=== PATIENT | female | born 1965 | race Caucasian/White ===

== ENCOUNTER 2024-07-29 07:55 | Outpatient (REF) | payer BC, SELFPAY ==
[2024-08-04 10:35] LABS: HPV Genotype 16 Negative (Negative); HPV Genotype 18 Negative (Negative); HPV High Risk Negative (Negative)
== END 2024-07-29 07:56 | disposition home or self-care (01) ==
LOC: HO.LNP 07:55
PROVIDERS: Visit Provider Internal Medicine
DX: Z00.00 Encounter for general adult medical examination without abnormal findings (principal); E78.5 Hyperlipidemia, unspecified; I10 Essential (primary) hypertension; E11.9 Type 2 diabetes mellitus without complications; Z79.84 Long term (current) use of oral hypoglycemic drugs; Z79.899 Other long term (current) drug therapy; Z12.4 Encounter for screening for malignant neoplasm of cervix; Z11.51 Encounter for screening for human papillomavirus (HPV)
CPT/HCPCS: 87626; 88175; 96127

== ENCOUNTER 2024-07-29 07:55 | Outpatient (AMB) | payer BC, SELFPAY ==
--- OUTSIDE RECORDS SUMMARY | 2024-07-29 08:00 | XMS_ITS | Patient Health Record ---
Author Organization [facility] Address [address] [address] Care Team Providers Care Television Analyzer Name Role Phone LEW Gill Primary Care Provider Reason For Referral No Information Problems Problem Type SNOMED Code ICD Code Onset Dates Problem Status W/U Status Risk Notes Problem Abdominal pain (36064907) Abd/ingui nal/groin pain (789.09) Active confirmed [facility] [id number] - Plan Of Treatment No Information Insurance Providers Payer Name Payer Address Payer Phone Subscriber Number Group Number Insured Name Patient Relationship to Insured Coverage Start Date Coverage End Date [facility] [place] [address] [place] [address] [id number] MARIE TAYLOR
--- NOTE | 2024-07-29 08:02 | A.OFFPC_ITS ---
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 Allergies Penicillins Allergy (Verified 07/29/24 08:08) Unknown anethesia Allergy (Uncoded 07/29/24 08:08) BP dropped Medication List - Last Reconciled 07/29/24 by Elise Rivas MD aspirin 81 mg PO DAILY biotin 10 mg PO DAILY cholecalciferol (vitamin D3) 25 mcg PO DAILY evening primrose oil 500 mg PO DAILY lisinopril 5 mg PO DAILY [magnesium gummies gummies] metformin 500 mg PO DAILY metformin ER 500 mg PO DAILY naproxen sodium 220 mg PO Q12H PRN omega-3 fatty acids 1,000 mg PO DAILY rosuvastatin 20 mg PO DAILY Tobacco use date assessed: 07/29/24 Dental Screening Dental Screen Date: 07/29/24 Did you have a dental visit in the last 12 months?: Yes Did you have a dental problem in the last 6 months where you did not have access to dental care?: No Was dental information given to patient?: Patient has dentist HPI CURER FOAM RUBBER-PE HPI Details Pt presents for [employer]ER FO[employer] RU[employer]ER PE. PMH is DM 2, HTN, hypercholest, stable on meds. Patient moved from [place] year and half ago. Patient complains of unrestful sleep, getting worse over last few months. She has been under stress related to her mother who lives in [place]. PFSH Surgical History (Updated 07/29/24 @ 08:47 by Elise Rivas MD) S/P LEEP (loop electrosurgical excision procedure) Hx of section Family History (Updated 07/29/24 @ 09:06 by Elise Rivas MD) Father Heart problem Hypertension CAD (coronary artery disease), Onset Age: 57 Mother Pre-diabetes Maternal Aunt Diabetes Maternal Grandmother No problems noted. 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 1. Little interest or pleasure in doing things: not at all 2. Feeling down, depressed, or hopeless: not at all 3. Trouble falling or staying asleep, or sleeping too much: several days 4. Feeling tired or having little energy: not at all 5. Poor appetite or overeating: not at all 6. Feeling bad about yourself - or that you are a failure or have let yourself or your family down: not at all 7. Trouble concentrating on things, such as reading the newspaper or watching television: not at all 8. Moving or speaking so slowly that other people could have noticed. Or the opposite - being so fidgety or restless that you have been moving around a lot more than usual: not at all 9. Thoughts that you would be better off or of hurting yourself in some way: not at all Total score: 1 Depression Screening Interpretation: Negative Depression Screening Done: Yes 09965 - PHQ-9 Billing: Yes Source: Developed by Drs. Perez Killian, Emelia Martinez, Herrera Vasquez and colleagues, with an educational siomara from [employer]. Thrive Questionnaire Date Thrive assessed: 07/29/24 I am a: Patient What is your living situation today?: I have a steady place to live Within the past 12 months, did the food you bought not last and you didn't have the money to get more?: Never true Within the past 12 months, did you worry whether your food would run out before you got money to buy more?: Never true Do you have trouble paying for medicines?: No Do you have trouble getting transportation to medical appointments?: No Do you have trouble paying your heating and electricity bill?: No Do you have trouble taking care of your child, family member or friend?: No Do you have trouble with day-to-day activities such as bathing, preparing meals, shopping, managing finances, etc.?: No Are you currently unemployed and looking for a job?: No Are you interested in more education?: No Please select the resources that you would like help with: None Currently or been in a relationship where the following occur: I choose not to answer THRIVE Score: 0 AUDIT C Alcohol Use Questionnaire (AUDIT-C) 1. How often do you have a drink containing alcohol?: Monthly or less 2. How many drinks containing alcohol do you have on a typical day when you are drinking?: 1 or 2 3. How often do you have six or more drinks on one occasion?: Never Total Score: 1 VAUGHN-7 AMB Questionnaire VAUGHN-7 Date VAUGHN - 7 assessed: 07/29/24 Feeling nervous, anxious, or on edge: 0 = Not at all Not being able to stop or control worryin = Not at all Worrying too much about different things: 0 = Not at all Trouble relaxin = Not at all Being so restless that it is hard to sit still: 0 = Not at all Becoming easily annoyed or irritable: 0 = Not at all Feeling afraid as if something awful might happen: 0 = Not at all Total VAUGHN-7 score (0-4 normal; 5-9 mild; 10-14 moderate; 15-21 severe): 0 Source: Developed by Drs. Perez Killian, Emelia Martinez, Herrera Vasquez and colleagues, with an educational siomara from [employer]. VAUGHN-7 Assessment Billing VAUGHN-7 Assessment Tool: VAUGHN-7 Assessment 83929 Review of Systems Const All systems reviewed & are unremarkable except as noted in HPI and below Reports no additional complaints Eyes Reports no additional complaints ENT Reports no additional complaints Card Reports no additional complaints Resp Reports no additional complaints GI Reports no additional complaints Reports no additional complaints Musc Reports no additional complaints Skin/Breast Reports system reviewed and no additional complaints, except as documented Physical exam (Primary Care) Vital Signs: Last Vital Signs Temp 98.1 F 07/29/24 08:04 Pulse 82 07/29/24 08:04 Resp 18 07/29/24 08:04 BP 122/78 07/29/24 08:04 Pulse Ox 99 07/29/24 08:04 Oxygen Delivery Method Room Air 07/29/24 08:04 BMI result Body Mass Index 27.5 Tobacco/Smoking Status: Tobacco use Status Tobacco use date assessed 07/29/24 07/29/24 08:13 Patient Tobacco Use Status Never used Tobacco 07/29/24 08:54 e-Cigarette/Vaping Use Never Used 07/29/24 08:54 PHQ-9: PHQ-9 Score PHQ-9: Total score 1 07/29/24 08:39 Depression Screening Interpretation: Negative Thrive Assessment: Date of Thrive Assessment Date Thrive assessed 07/29/24 07/29/24 08:19 Currently or been in a relationship where the following occur: I choose not to answer Const General: no acute distress HENMT Head: Yes normal to inspection Ears: hearing grossly normal bilaterally Face and sinus: Yes normal facial exam Mouth: Normal oral and palatal mucosa present Eyes General: appearance normal, both eyes and all related structures Neck Neck: Yes no lymphadenopathy and Yes supple Resp Effort & Inspection: normal respiratory effort Auscultation: clear to auscultation bilaterally Cardio Rhythm: regular rhythm Heart sounds: S1 normal heart sound present and S2 normal heart sound present GI Inspection: Yes normal to inspection Palpation (GI): Soft to palpation Percussion: Yes normal to percussion Auscultation: normal bowel sounds Speculum Exam - Vagina: normal appearance of the vagina Speculum Exam - Cervix: normal appearance of the cervix Bimanual exam- vagina & uterus: normal bimanual exam Extrem Other: Diabetic foot exam skin is intact monofilament and vibration sensation intact bilaterally General: Yes no clubbing, cyanosis or edema Coding Level of Care Code Est Pt Prev Care 40-64y(00323) Diagnoses Hyperlipidemia E78.5 HTN (hypertension) I10 DM2 (diabetes mellitus, type 2) E11.9 Colon cancer screening Z12.11 Annual physical exam Z00.00 Additional Codes VAUGHN-7 Assessment Billing - VAUGHN-7 Assessment Tool: VAUGHN-7 Assessment 88153 ([id number]) PHQ-9 - 24561 - PHQ-9 Billing: Yes ([id number]) Assessment & Plan Assessment & Plan (1) Hyperlipidemia: Code(s): E78.5 - Hyperlipidemia, unspecified Category: Medical Plan: Continue statin, return for fasting blood work including lipid profile (2) HTN (hypertension): Code(s): I10 - Essential (primary) hypertension Category: Medical Plan: Continue lisinopril (3) DM2 (diabetes mellitus, type 2): Code(s): E11.9 - Type 2 diabetes mellitus without complications Category: Medical Plan: Continue metformin ADA diet increase physical activity weight loss discussed with the patient (4) Colon cancer screening: Comment: Sonja cooper 02/2024 Code(s): Z12.11 - Encounter for screening for malignant neoplasm of colon Category: Medical Plan: Patient declined colonoscopy (5) Annual physical exam: Code(s): Z00.00 - Encounter for general adult medical examination without abnormal findings Category: Medical Plan: Well-balanced diet regular physical activity discussed with the patient mammogram will be scheduled Pap smear was done today, patient will return in 3 months Orders: Orders Complete Blood Count Auto Diff Today E11.9 - Type 2 diabetes mellitus without complications, E78.5 - Hyperlipidemia, unspecified, I10 - Essential (primary) hypertension Hemoglobin A1c Today E11.9 - Type 2 diabetes mellitus without complications, E78.5 - Hyperlipidemia, unspecified, I10 - Essential (primary) hypertension Vitamin D 25-OH Total Today E11.9 - Type 2 diabetes mellitus without complications, E78.5 - Hyperlipidemia, unspecified, I10 - Essential (primary) hypertension Pap Smear Today Z00.00 - Encounter for general adult medical examination without abnormal findings MM screening mammo BI Today Z12.31 - Encounter for screening mammogram for malignant neoplasm of breast Comprehensive [place]. Panel Fast Today E11.9 - Type 2 diabetes mellitus without complications, E78.5 - Hyperlipidemia, unspecified, I10 - Essential (primary) hypertension Lipid Panel Today E11.9 - Type 2 diabetes mellitus without complications, E78.5 - Hyperlipidemia, unspecified, I10 - Essential (primary) hypertension Microalbumin, Random (w Creat) Today E11.9 - Type 2 diabetes mellitus without complications, E78.5 - Hyperlipidemia, unspecified, I10 - Essential (primary) hypertension Hemoglobin A1c 3 Months E11.9 - Type 2 diabetes mellitus without complications, I10 - Essential (primary) hypertension Comprehensive [place]. Panel Fast 3 Months E11.9 - Type 2 diabetes mellitus without complications, I10 - Essential (primary) hypertension Medications: New lisinopril 5 mg PO DAILY 90 tabs 3RF metformin ER 500 mg PO DAILY 90 tabs 3RF rosuvastatin 20 mg PO DAILY 90 tabs 3RF
[2024-07-29 08:04] VITALS: BP 122/78; PULSE 82; RESP 18; TEMP 36.7; O2SAT 99; BMI 27.5
== END 2024-07-29 09:43 | disposition home or self-care (01) ==
LOC: HO.HMCC 07:56
PROVIDERS: PCP Internal Medicine; Visit Provider Internal Medicine
DX: E78.5 Hyperlipidemia, unspecified (principal); I10 Essential (primary) hypertension; E11.9 Type 2 diabetes mellitus without complications; Z12.11 Encounter for screening for malignant neoplasm of colon; Z00.00 Encounter for general adult medical examination without abnormal findings

== ENCOUNTER 2024-08-02 08:56 | Outpatient (REF) | payer BC, SELFPAY ==
--- OUTSIDE RECORDS SUMMARY | 2024-08-02 09:46 | XMS_ITS | Patient Health Record ---
Author Organization [facility] Address [address] [address] Care Team Providers Care Numerical Control Operator Name Role Phone LEW Gill Primary Care Provider Reason For Referral No Information Problems Problem Type SNOMED Code ICD Code Onset Dates Problem Status W/U Status Risk Notes Problem Abdominal pain (81547884) Abd/ingui nal/groin pain (789.09) Active confirmed [facility] [id number] - Plan Of Treatment No Information Insurance Providers Payer Name Payer Address Payer Phone Subscriber Number Group Number Insured Name Patient Relationship to Insured Coverage Start Date Coverage End Date [facility] [place] [address] [place] [address] [phone] [id number] MARIE TAYLOR
[2024-08-02 10:01] LABS: MANUAL DIFF FLAG NO
[2024-08-02 10:13] LABS: Basophils Percent Auto 0.6 % (0-2); Eosinophils Absolute Auto 0.1 X10*3/uL (0.0-0.4); Eosinophils Percent Auto 1.5 % (0-4); Hematocrit 29.5 % (37.0-47.0); Hemoglobin 8.3 g/dl (12.0-16.0); Imm Gran Abs Auto 0.01 X10*3/uL (0.00-0.03); Imm Gran Pct Auto 0.2 % (0.0-0.4); Lymphocytes Absolute Auto 1.5 X10*3/uL (1.2-4.9); Lymphocytes Percent Auto 28.5 % (20-40); Mean Corpuscular HGB Conc 28.1 g/dl (31.0-35.0); Mean Corpuscular Hemoglobin 17.1 pg (27.0-33.0); Monocytes Absolute Auto 0.5 X10*3/uL (0.1-1.2); Monocytes Percent Auto 9.8 % (2-11); Neutrophils Absolute Auto 3.1 x10*3/uL (2.0-8.3); Neutrophils Percent Auto 59.4 % (45-73); Platelet Count 265 X10*3/uL (160-400); Red Blood Count 4.84 X10*6/uL (4.20-5.50); Red Cell Distribution Width 21.6 % (11.0-16.0); White Blood Count 5.2 X10*3/uL (4.8-10.8)
[2024-08-02 10:52] LABS: Estimated Average Glucose 117 mg/dL; Hemoglobin A1C 87.3767 umol/L; Hemoglobin A1c % 5.7 % (<6.0); Total Hemoglobin (HGBA1C) 2231.8466 umol/L
[2024-08-02 11:06] LABS: Alanine Aminotransferase 19 U/L (0-31); Albumin Level 4.4 g/dL (3.5-5.0); Alkaline Phosphatase 65 U/L (39-117); Anion Gap 9 (12-20); Aspartate Amino Transferase 33 U/L (5-31); Bilirubin Total 0.5 mg/dL (0.0-1.0); Blood Urea Nitrogen 15 mg/dL (9-16); Calcium 9.6 mg/dL (8.4-10.2); Carbon Dioxide 24 mmol/L (22-29); Chloride 109 mmol/L (96-108); Cholesterol 161 mg/dL (<200); Estimated Glomerular Filt Rate > 60; Glucose Fasting 89 mg/dL (60-99); HDL Cholesterol 52 mg/dL (>40); LDL Cholesterol Calculated 89 mg/dL (<100); Potassium 4.4 mmol/L (3.3-5.1); Sodium 138 mmol/L (135-145); Total Protein 7.5 g/dL (6.5-8.0); Triglycerides 101 mg/dL (<150)
[2024-08-02 11:08] LABS: Vitamin D 25-OH Total 69.7 ng/mL (>30)
[2024-08-02 11:20] LABS: Creatinine Urine 20.21 mg/dL; Microalbumin Urine < 5.0 mg/L
== END 2024-08-02 08:57 | disposition home or self-care (01) ==
LOC: HO.HMGCLDS 08:56
PROVIDERS: PCP Internal Medicine; Visit Provider Internal Medicine
DX: E78.5 Hyperlipidemia, unspecified (principal); I10 Essential (primary) hypertension; E11.9 Type 2 diabetes mellitus without complications
CPT/HCPCS: 36415; 80053; 80061; 82043; 82306; 82570; 83036; 85025

== ENCOUNTER 2024-10-11 08:45 | Outpatient (REF) | payer BC, SELFPAY ==
--- OUTSIDE RECORDS SUMMARY | 2024-10-11 09:09 | XMS_ITS | Patient Health Record ---
Author Organization [facility] Address [address] [address] Care Team Providers Care Embedded Software Programmer Name Role Phone LEW Gill Primary Care Provider [phone] Reason For Referral No Information Problems Problem Type SNOMED Code ICD Code Onset Dates Problem Status W/U Status Risk Notes Problem Abd/inguin al/groin pain (789.09) Active confirmed [facility] [id number] - Plan Of Treatment No Information Insurance Providers Payer Name Payer Address Payer Phone Subscriber Number Group Number Insured Name Patient Relationship to Insured Coverage Start Date Coverage End Date [facility] [place] [address] [place] [address] [id number] MARIE TAYLOR
== END 2024-10-11 08:46 | disposition home or self-care (01) ==
LOC: HO.MAMMO 08:45
PROVIDERS: PCP Internal Medicine; Visit Provider Internal Medicine
DX: Z12.31 Encounter for screening mammogram for malignant neoplasm of breast (principal)
CPT/HCPCS: 77063; 77067

== ENCOUNTER → 2024-10-11 08:45 | Outpatient (BNV) | payer BC, SELFPAY | PROVIDERS: PCP Internal Medicine; Visit Provider Internal Medicine | DX: Z12.31 Encounter for screening mammogram for malignant neoplasm of breast (principal) | CPT/HCPCS: 77063; 77067 ==

== ENCOUNTER 2024-11-08 09:19 | Outpatient (REF) | payer BC, SELFPAY ==
[2024-11-08 14:12] LABS: Hemoglobin A1C 120.2069 umol/L; Total Hemoglobin (HGBA1C) 3461.4008 umol/L
[2024-11-08 14:24] LABS: Alanine Aminotransferase 34 U/L (0-31); Albumin Level 4.7 g/dL (3.5-5.0); Alkaline Phosphatase 57 U/L (39-117); Anion Gap 10 (12-20); Aspartate Amino Transferase 51 U/L (5-31); Blood Urea Nitrogen 19 mg/dL (9-16); Calcium 10.0 mg/dL (8.4-10.2); Carbon Dioxide 26 mmol/L (22-29); Chloride 108 mmol/L (96-108); Estimated Glomerular Filt Rate > 60; Iron 44 mcg/dL (30-160); Percent Iron Saturation 11 % (15-50); Potassium 4.2 mmol/L (3.3-5.1); Sodium 140 mmol/L (135-145); Total Iron Binding Capacity 383 mcg/dL (228-428); Total Protein 7.8 g/dL (6.5-8.0); Unsaturated Iron Binding 339 ug/dL
[2024-11-08 14:56] LABS: Folate 13.2 ng/mL (> or = 4.0); Vitamin B12 552 pg/mL (200-900)
== END 2024-11-08 09:20 | disposition home or self-care (01) ==
LOC: HO.HMGCLDS 09:19
PROVIDERS: PCP Internal Medicine; Visit Provider Internal Medicine
DX: D23.5 Other benign neoplasm of skin of trunk (principal); Z23 Encounter for immunization; I10 Essential (primary) hypertension; E78.5 Hyperlipidemia, unspecified; E11.9 Type 2 diabetes mellitus without complications; I65.23 Occlusion and stenosis of bilateral carotid arteries; D64.9 Anemia, unspecified; Z79.899 Other long term (current) drug therapy; Z00.00 Encounter for general adult medical examination without abnormal findings
CPT/HCPCS: 36415; 80053; 82607; 82746; 83036; 83540; 84443; 90471; 90677

== ENCOUNTER 2024-11-08 09:19 | Outpatient (AMB) | payer BC, SELFPAY ==
--- NOTE | 2024-11-08 09:30 | A.OFFPC_ITS ---
Vital Signs 11/08/24 09:31 Height 5 ft 2.5 in Weight 151 lb BMI 27.2 BP 106/70 Blood Pressure Location Lt brachial Position Sitting Respiration 18 Pulse 69 Pulse Source Pulse Oximeter Temp 98.3 F Temp Source Oral Pulse Oximetry (%) 96 Oxygen Delivery Method Room Air Intake Visit Reasons: 3 months f/up Intake Note: Pt is here today for 3 months follow up visit on DM. Allergies Penicillins Allergy (Verified 11/08/24 09:34) Unknown anethesia Allergy (Uncoded 11/08/24 09:34) BP dropped Medication List - Last Reconciled 11/08/24 by Elise Rivas MD aspirin 81 mg PO DAILY biotin 10 mg PO DAILY cholecalciferol (vitamin D3) 25 mcg PO DAILY evening primrose oil 500 mg PO DAILY lisinopril 5 mg PO DAILY [magnesium gummies gummies] metformin ER 500 mg PO DAILY naproxen sodium 220 mg PO Q12H PRN omega-3 fatty acids 1,000 mg PO DAILY rosuvastatin 20 mg PO DAILY Tobacco use date assessed: 11/08/24 Dental Screening Dental Screen Date: 07/29/24 HPI 3 months f/up HPI Details Patient presents for the follow-up hypertension hyperlipidemia type 2 diabetes is stable on current medications. She has started taking iron supplement for the last 2 months after finding out that she was anemic. Patient never had a blood work to evaluate for iron deficiency [facility] Medical History (Updated 11/08/24 @ 11:44 by Elise Rivas MD) Anemia Colon cancer screening DM2 (diabetes mellitus, type 2) Hyperlipidemia Carotid stenosis, bilateral HTN (hypertension) Surgical History S/P LEEP (loop electrosurgical excision procedure) Hx of section Family History Father Heart problem Hypertension CAD (coronary artery disease), Onset Age: 57 Mother Pre-diabetes Maternal Aunt Diabetes Maternal Grandmother No problems noted. 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[facility] Housing: House Patient Tobacco Use Status: Never used Tobacco e-Cigarette/Vaping Use: Never Used service: No Current occupational status: employed Cognitive needs: No Hearing needs: No Vision needs: Yes Questionnaire Thrive Questionnaire Date Thrive assessed: 07/25/24 I am a: Patient What is your living situation today?: I have a steady place to live Within the past 12 months, did the food you bought not last and you didn't have the money to get more?: Never true Within the past 12 months, did you worry whether your food would run out before you got money to buy more?: Never true Do you have trouble paying for medicines?: No Do you have trouble getting transportation to medical appointments?: No Do you have trouble paying your heating and electricity bill?: No Do you have trouble taking care of your child, family member or friend?: No Do you have trouble with day-to-day activities such as bathing, preparing meals, shopping, managing finances, etc.?: No Are you currently unemployed and looking for a job?: No Are you interested in more education?: No Please select the resources that you would like help with: None Currently or been in a relationship where the following occur: I choose not to answer THRIVE Score: 0 VAUGHN-7 AMB Questionnaire VAUGHN-7 Date VAUGHN - 7 assessed: 07/29/24 Source: Developed by Drs. Perez Killian, Emelia Martinez, Herrera Vasquez and colleagues, with an educational siomara from [employer] Review of Systems Const All systems reviewed & are unremarkable except as noted in HPI and below Eyes Reports no additional complaints ENT Reports no additional complaints Card Reports no additional complaints Resp Reports no additional complaints GI Reports no additional complaints Reports no additional complaints Musc Reports no additional complaints Physical exam (Primary Care) Vital Signs: Last Vital Signs Temp 98.3 F 11/08/24 09:31 Pulse 69 11/08/24 09:31 Resp 18 11/08/24 09:31 BP 106/70 11/08/24 09:31 Pulse Ox 96 11/08/24 09:31 Oxygen Delivery Method Room Air 11/08/24 09:31 BMI result Body Mass Index 27.2 Tobacco/Smoking Status: Tobacco use Status Tobacco use date assessed 11/08/24 11/08/24 09:37 Patient Tobacco Use Status Never used Tobacco 11/08/24 09:34 e-Cigarette/Vaping Use Never Used 11/08/24 09:34 Thrive Assessment: Date of Thrive Assessment Date Thrive assessed 07/25/24 11/08/24 09:34 Currently or been in a relationship where the following occur: I choose not to answer Const General: no acute distress HENMT Head: Yes normal to inspection Mouth: Normal oral and palatal mucosa present Neck Neck: Yes no lymphadenopathy and Yes supple Resp Effort & Inspection: normal respiratory effort Auscultation: clear to auscultation bilaterally Cardio Rhythm: regular rhythm Heart sounds: S1 normal heart sound present and S2 normal heart sound present GI Inspection: Yes normal to inspection Palpation (GI): Soft to palpation Percussion: Yes normal to percussion Auscultation: normal bowel sounds Immunizations pneumoc 20-trever conj-dip cr(PF) 0.5 mL IM syringe Performing Provider: Elise Rivas MD Performing Location: [facility] Administered by: PEPE Spencer on 11/08/24 10:34 Dose Route Admin Location Dispensed Lot Number Expiration Date [facility] Primary Special Education Teacher 0.5 mL IM Left Deltoid 0.5 mL [id number] 10/24/25 [id number] [employer] Total Dispensed Waste 0.5 mL 0 % VIS Given Date VIS Provided VIS Publication Date 11/08/24 Single Vaccine 24 Eligibility Eligibility Date Funding Source Not [facility] Eligible 11/08/24 Private Coding Level of Care Code Est Pt Level 4 (26772) Complex EM visit Add On G2211 Diagnoses Dysplastic nevi D23.9 HTN (hypertension) I10 Hyperlipidemia E78.5 DM2 (diabetes mellitus, type 2) E11.9 Carotid stenosis, bilateral I65.23 Anemia D64.9 Assessment & Plan Assessment & Plan (1) Dysplastic nevi: Comment: Lower back Code(s): D23.9 - Other benign neoplasm of skin, unspecified Category: Medical Plan: Referred to dermatology (2) HTN (hypertension): Code(s): I10 - Essential (primary) hypertension Category: Medical Plan: Continue lisinopril (3) Hyperlipidemia: Code(s): E78.5 - Hyperlipidemia, unspecified Category: Medical Plan: Continue statin (4) DM2 (diabetes mellitus, type 2): Code(s): E11.9 - Type 2 diabetes mellitus without complications Category: Medical Plan: A1c is 5.7, ADA diet regular physical activity continue metformin discussed with the patient follow-up in 6 months with a fasting labs (5) Carotid stenosis, bilateral: Comment: Less than 50% on ultrasound 2022 Code(s): I65.23 - Occlusion and stenosis of bilateral carotid arteries Category: Medical Plan: Obtain carotid Doppler (6) Anemia: Code(s): D64.9 - Anemia, unspecified Category: Medical Plan: Check iron study B12 level. Patient was giving Hemoccult to rule out occult GI bleed. Orders: Orders Comprehensive Met. Panel Today D64.9 - Anemia, unspecified, E11.9 - Type 2 diabetes mellitus without complications, Z00.00 - Encounter for general adult medical examination without abnormal findings IRON PROFILE Today D64.9 - Anemia, unspecified, E11.9 - Type 2 diabetes mellitus without complications, Z00.00 - Encounter for general adult medical examination without abnormal findings Vitamin B12 and Folate Today D64.9 - Anemia, unspecified, E11.9 - Type 2 diabetes mellitus without complications, Z00.00 - Encounter for general adult medical examination without abnormal findings XR DEXA axial skeleton Today D64.9 - Anemia, unspecified, E11.9 - Type 2 diabetes mellitus without complications, Z00.00 - Encounter for general adult medical examination without abnormal findings US carotid duplex BI Today I65.23 - Occlusion and stenosis of bilateral carotid arteries Comprehensive [place]. Panel Fast 6 Months E11.9 - Type 2 diabetes mellitus without complications, E78.5 - Hyperlipidemia, unspecified, I10 - Essential (primary) hypertension Hemoglobin A1c 6 Months E11.9 - Type 2 diabetes mellitus without complications, E78.5 - Hyperlipidemia, unspecified, I10 - Essential (primary) hypertension IRON PROFILE 6 Months E11.9 - Type 2 diabetes mellitus without complications, E78.5 - Hyperlipidemia, unspecified, I10 - Essential (primary) hypertension AMB Stool Occult Bld x3 gFOBT Today D64.9 - Anemia, unspecified, E11.9 - Type 2 diabetes mellitus without complications, Z00.00 - Encounter for general adult medical examination without abnormal findings, Z12.11 - Encounter for screening for malignant neoplasm of colon, Z12.12 - Encounter for screening for malignant neoplasm of rectum Hemoglobin A1c Today D64.9 - Anemia, unspecified, E11.9 - Type 2 diabetes mellitus without complications, Z00.00 - Encounter for general adult medical examination without abnormal findings TSH reflex Free T4 Today D64.9 - Anemia, unspecified, E11.9 - Type 2 diabetes mellitus without complications, Z00.00 - Encounter for general adult medical examination without abnormal findings Pneumococcal 20 Immunization Today Z23 - Encounter for immunization Lipid Panel 6 Months E11.9 - Type 2 diabetes mellitus without complications, E78.5 - Hyperlipidemia, unspecified, I10 - Essential (primary) hypertension Complete Blood Count Auto Diff 6 Months E11.9 - Type 2 diabetes mellitus without complications, E78.5 - Hyperlipidemia, unspecified, I10 - Essential (primary) hypertension Microalbumin, Random (w Creat) 6 Months E11.9 - Type 2 diabetes mellitus without complications, E78.5 - Hyperlipidemia, unspecified, I10 - Essential (primary) hypertension Referrals Dermatology Referral D23.9 - Other benign neoplasm of skin, unspecified
[2024-11-08 09:31] VITALS: BP 106/70; PULSE 69; RESP 18; TEMP 36.8; O2SAT 96; BMI 27.2
--- OUTSIDE RECORDS SUMMARY | 2024-11-08 09:49 | XMS_ITS | Patient Health Record ---
Author Organization [facility] Address [address] [address] Care Team Providers Care Electronic Plotting System Operator Name Role Phone LEW Gill Primary Care Provider Reason For Referral No Information Problems Problem Type SNOMED Code ICD Code Onset Dates Problem Status W/U Status Risk Notes Problem Abd/inguin al/groin pain (789.09) Active confirmed [facility] [id number] - Plan Of Treatment No Information Insurance Providers Payer Name Payer Address Payer Phone Subscriber Number Group Number Insured Name Patient Relationship to Insured Coverage Start Date Coverage End Date [facility] [place] [address] [place] [address] [id number] MARIE TAYLOR
== END 2024-11-08 11:47 | disposition home or self-care (01) ==
LOC: HO.HMCC 09:20
PROVIDERS: PCP Internal Medicine; Visit Provider Internal Medicine
DX: D23.9 Other benign neoplasm of skin, unspecified (principal); I10 Essential (primary) hypertension; E78.5 Hyperlipidemia, unspecified; E11.9 Type 2 diabetes mellitus without complications; I65.23 Occlusion and stenosis of bilateral carotid arteries; D64.9 Anemia, unspecified; Z23 Encounter for immunization

== ENCOUNTER 2024-12-13 10:24 | Outpatient (REF) | payer BC, SELFPAY ==
--- NOTE | ~2024-12-13 | US_ITS ---
CLINICAL HISTORY: I65.23 - Occlusion and stenosis of bilateral carotid arteries US Bilateral Carotid Duplex Comparison: None provided Findings: Moderate plaque within the carotid bulbs. Normal color doppler and waveforms morphology. Peak systolic velocities: Right CCA: 57 cm/s. Right ICA: 89 cm/s. ICA/CCA ratio: 1.1. Right ECA: Unremarkable. Right vertebral artery flow antegrade. Left CCA: 101 cm/s. Left ICA: 129 cm/s. ICA/CCA ratio: 0.7. Left ECA: Unremarkable. Left vertebral artery flow antegrade. IMPRESSION: Normal carotid velocities, no significant stenosis (0-49% stenosis). Moderate atherosclerotic disease bilaterally. This document has been electronically signed by: Jhony Villa MD on 12/14/2024 19:49:48
--- OUTSIDE RECORDS SUMMARY | 2024-12-13 11:42 | XMS_ITS | Patient Health Record ---
Author Organization [facility] Address [address] [address] Care Team Providers Care Seam Taper Machine Name Role Phone LEW Gill Primary Care Provider [phone] Reason For Referral No Information Problems Problem Type SNOMED Code ICD Code Onset Dates Problem Status W/U Status Risk Notes Problem Abd/inguin al/groin pain (789.09) Active confirmed [facility] [id number] - Plan Of Treatment No Information Insurance Providers Payer Name Payer Address Payer Phone Subscriber Number Group Number Insured Name Patient Relationship to Insured Coverage Start Date Coverage End Date [facility] [place] [address] [place] [phone] [id number] MARIE SUGGS
[2024-12-19 11:58] LABS: FIT Date 1 08/18/25; FIT Date 2 08/19/25; FIT Int Ctl YES; FIT Lot M502775; FIT1 NEGATIVE (NEGATIVE); FIT2 NEGATIVE (NEGATIVE)
== END 2024-12-13 10:25 | disposition home or self-care (01) ==
LOC: HO.HMGCX 10:24
PROVIDERS: PCP Internal Medicine; Visit Provider Internal Medicine
DX: I65.23 Occlusion and stenosis of bilateral carotid arteries (principal)
CPT/HCPCS: 82274; 93880

== ENCOUNTER → 2024-12-13 10:32 | Outpatient (BNV) | payer BC, SELFPAY | PROVIDERS: PCP Internal Medicine; Visit Provider Radiology Vascular & Interventional Radiology | DX: I65.23 Occlusion and stenosis of bilateral carotid arteries (principal) | CPT/HCPCS: 93880 ==

== ENCOUNTER 2024-12-19 08:21 | Outpatient (REF) | payer BC, SELFPAY ==
--- NOTE | ~2024-12-19 | US_ITS ---
CLINICAL HISTORY: R79.89 - Other specified abnormal findings of blood chemistry Exam: Ultrasound of the right upper quadrant of the abdomen. Comparison: None provided. Findings: Liver measures 15 cm in long axis. Increased echotexture throughout the liver without focal lesion or intrahepatic biliary ductal dilatation. Common bile duct is within normal limits. Gallbladder is unremarkable without gallbladder wall thickening, pericholecystic fluid, or cholelithiasis. Pancreas and right kidney are unremarkable. No free fluid. Impression: 1. Echogenic liver. This can be seen with fatty infiltration or medical liver disease. 2. Unremarkable ultrasound of the gallbladder. This document has been electronically signed by: Aleksey García MD on 12/19/2024 09:09:57
--- OUTSIDE RECORDS SUMMARY | 2024-12-19 08:45 | XMS_ITS | Patient Health Record ---
Author Organization [facility] Address [address] [address] Care Team Providers Care Web Site Manager Name Role Phone LEW Gill Primary Care Provider Reason For Referral No Information Problems Problem Type SNOMED Code ICD Code Onset Dates Problem Status W/U Status Risk Notes Problem Abd/inguin al/groin pain (789.09) Active confirmed [facility] [id number] - Plan Of Treatment No Information Insurance Providers Payer Name Payer Address Payer Phone Subscriber Number Group Number Insured Name Patient Relationship to Insured Coverage Start Date Coverage End Date [facility] [place] [address] [place] [phone] [id number] MARIE TAYLOR
== END 2024-12-19 08:22 | disposition home or self-care (01) ==
LOC: HO.HMGCX 08:21
PROVIDERS: PCP Internal Medicine; Visit Provider Internal Medicine
DX: R79.89 Other specified abnormal findings of blood chemistry (principal)
CPT/HCPCS: 76705

== ENCOUNTER → 2024-12-19 08:25 | Outpatient (BNV) | payer BC, SELFPAY | PROVIDERS: PCP Internal Medicine; Visit Provider Radiology Diagnostic Radiology | DX: R79.89 Other specified abnormal findings of blood chemistry (principal); R93.2 Abnormal findings on diagnostic imaging of liver and biliary tract | CPT/HCPCS: 76705 ==

== ENCOUNTER 2025-02-14 08:08 | Outpatient (REF) | payer BC, SELFPAY ==
--- NOTE | ~2025-02-14 | MM_ITS ---
EXAMINATION: DXA BONE DENSITY AXIAL HISTORY: E11.9 - Type 2 diabetes mellitus without complications TECHNIQUE: [employer] Dual energy absorptiometry (DEXA) of the lumbar spine, total left hip, and femoral neck was performed. COMPARISON: None FINDINGS: The bone mineral density of the lumbar spine is 1.056 g/cm2, corresponding to a T-score of -1, and a Z-score of 0.01. This is indicative of normal bone mineral density. The bone mineral density of the left total hip is 1.051 g/cm2, corresponding to a T-score of 0.3, and a Z-score of 1.2. This is indicative of normal bone mineral density. The bone mineral density of the left femoral neck is 1.010 g/cm2, corresponding to a T-score of -0.2, and a Z-score of 1. This is indicative of normal bone mineral density. FRACTURE RISK: The FRAX index suggests a ten year probability of major osteoporotic fracture of 6.4%, and of hip fracture 0.2%. MM/XR DEXA axial skeleton IMPRESSION: Based on bone mineral density, and according to World Health Organization (WHO) criteria, the diagnosis is consistent with normal based on T score of -1 in the AP lumbar spine Statistically, 68% of repeat scans fall within 1 SD (+/- 0.010 g/cm2 for AP spine L1-L4) and 1 SD (+/- 0.012 g/cm2 for femur total) FRAX is a trademark of the [employer] [place] [employer] Met[employer] Bone [employer], a World Health Organization (WHO) Collaborating Center. Electronically signed by: Zoila Thompson MD 02/14/2025 08:56 AM EDT
--- OUTSIDE RECORDS SUMMARY | 2025-02-14 08:14 | XMS_ITS | Patient Health Record ---
Author Organization [facility] Address [address] [address] Care Team Providers Care Home Delivery Driver Name Role Phone LEW Gill Primary Care Provider Reason For Referral No Information Problems Problem Type SNOMED Code ICD Code Onset Dates Problem Status W/U Status Risk Notes Problem Abdominal pain (26349310) Abd/ingui nal/groin pain (789.09) Active confirmed [facility] [id number] - Plan Of Treatment No Information Insurance Providers Payer Name Payer Address Payer Phone Subscriber Number Group Number Insured Name Patient Relationship to Insured Coverage Start Date Coverage End Date [facility] [place] [address] [place] [address] [id number] MARIE TAYLOR
== END 2025-02-14 08:09 | disposition home or self-care (01) ==
LOC: HO.MAMMO 08:08
PROVIDERS: PCP Internal Medicine; Visit Provider Internal Medicine
DX: Z13.820 Encounter for screening for osteoporosis (principal); Z78.0 Asymptomatic menopausal state; E11.9 Type 2 diabetes mellitus without complications; D64.9 Anemia, unspecified
CPT/HCPCS: 77080

== ENCOUNTER → 2025-02-14 08:15 | Outpatient (BNV) | payer BC, SELFPAY | PROVIDERS: PCP Internal Medicine; Visit Provider Radiology Diagnostic Radiology | DX: E28.39 Other primary ovarian failure (principal) | CPT/HCPCS: 77080 ==